=== PATIENT | female | born 1965 | race Two or more races ===

== ENCOUNTER 2020-11-10 15:31 | Emergency (ER) | payer OTHER ==
[~2020-11-10] VITALS: Ht 177.8 cm; Wt 131.6 kg
[2020-11-10] MEDS ORDERED: IPRATRPIUM/ALBUTEROL 0.5/2.5MG 3 ML NEBU. ONE (15:57)
[2020-11-10] MEDS ORDERED: IPRATRPIUM/ALBUTEROL 0.5/2.5MG 3 ML NEBU. NEB ONE (16:00)
[2020-11-10] MEDS ORDERED: BENZONATATE 100 MG CAPSULE. PO ONE (16:00)
--- NOTE | 2020-11-10 16:14 | EKG ---
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
--- NOTE | 2020-11-10 16:16 | PHYS DOC ---
Past History Past Medical History: Hypertension (SHAYE GARCIA APRN) Past Surgical History: Other Additional Past Surgical Histo: Shoulder (SHAYE GARCIA APRN) Alcohol Use: None (SHAYE GARCIA APRN) Adult General Chief Complaint Chief Complaint: SHORTNESS OF BREATH HPI HPI Patient is a 55-year-old female reports noticing shortness of breath approximately a month ago. Patient states it is slowly progressed and became worse stating that 4 to 5 days ago she become increasingly short of breath with exertion. Patient states that last night it has been at its worst, patient states that she has coughing spells with yellow-green productive sputum. Patient states she had a Covid test that was read negative on 11/08/2020. Patient denies chest pain, or chest palpitations, denies fever or chills at home, denies nausea, vomiting, diarrhea, abdominal pain, constipation. Patient denies any problems urinating, denies UTI type signs or symptoms, denies vaginal discharge, denies STI concerns. Patient denies any nasal congestion, denies ear pain, visual changes, denies loss of taste or smell. Patient states her main concern is that she becomes increasingly short of breath when she moves around, also states that it seems to resolve if she is resting still. Patient states she was a former cigarette smoker, she quit 5 years ago. Patient denies alcohol consumption, denies illicit drug use. Patient denies any other physical complaints or physical symptoms. (SHAYE GARCIA APRN) Review of Systems Review of Systems 14 body systems of review of systems have been reviewed. See HPI for pertinent positives and negative responses, otherwise all other systems are negative, nonpertinent or noncontributory. (SHAYE GARCIA APRN) Current Medications Current Medications Patient denies taking prescription medications at home. Current Medications Medications (Trade) Dose Ordered Sig/Xu Start Time Stop Time Status Last Admin Dose Admin Albuterol/ Ipratropium (Duoneb) 3 ml STK-MED ONCE 11/10/20 15:57 11/10/20 15:57 DC Benzonatate (Tessalon Perle) 100 mg 1X ONCE 11/10/20 16:00 11/10/20 16:01 DC (SHAYE GARCIA APRN) Allergies Allergies Allergies Coded Allergies Type Severity Reaction Last Updated Verified methylprednisolone Allergy Unknown 11/10/20 Yes (SHAYE GARCIA APRN) Physical Exam Physical Exam Constitutional: Well developed, well nourished, no acute distress, non-toxic appearance. Patient in no apparent respiratory distress during physical examination. HENT: Normocephalic, atraumatic, bilateral external ears normal, oropharynx moist, no oral exudates, nose normal. Oropharynx pink moist without uvular edema, no peritonsillar abscess, no cobblestoning, no tonsillar swelling, no tongue swelling, no loss of sensation to the tongue or face. Eyes: PERRLA, EOMI, conjunctiva normal, no discharge. Neck: Normal range of motion, no tenderness, supple, no stridor. No nuchal rigidity, no meningismus signs Cardiovascular:Heart rate regular rhythm, no murmur, heart sounds S1-S2 auscultation. Lungs & Thorax: Audible i.e. wheezing to auscultation all lung hoffman. No other adventitious lung sounds appreciated. Abdomen: Bowel sounds normal, soft, no tenderness, no masses, no pulsatile masses. Skin: Warm, dry, no erythema, no rash. Back: No tenderness, no CVA tenderness. Extremities: No tenderness, no cyanosis, no clubbing, ROM intact, no edema. Neurologic: Alert and oriented X 3, normal motor function, normal sensory function, no focal deficits noted. Psychologic: Affect normal, judgement normal, mood normal. (SHAYE GARCIA APRN) Current Patient Data Vital Signs Vital Signs Date Time Temp Pulse Resp B/P (MAP) Pulse Ox O2 Delivery O2 Flow Rate FiO2 11/10/20 15:45 98.0 97 18 163/97 (119) 96 Room Air (SHAYE GARCIA APRN) EKG EKG EKG performed at 1602 by house respiratory therapy staff, normal sinus rhythm without ectopy or heart rate 91 bpm, ID interval 0.144, QTc interval 0.467, no acute STEMI, no ACS, no acute ischemia appreciated, EKG interpreted by ED attending physician Dr. Gong. (SHAYE GARCIA APRN) Radiology/Procedures Radiology/Procedures PATIENT: AYDEN HOLM ACCOUNT: [id number] : 1965 LOCATION: ER AGE: 55 SEX: F EXAM STATUS: REG ER ORD. PHYSICIAN: SHAYE GARCIA APRN REASON: SHORT OF BREATH PROCEDURE: CHEST PA & LATERAL EXAM: Chest, 2 views. HISTORY: Short of breath. COMPARISON: None. FINDINGS: 2 views of the chest are obtained. There is no infiltrate, pleural effusion or pneumothorax. The heart is normal in size. There are chronic appearing interstitial markings. IMPRESSION: No acute pulmonary finding. Electronically signed by: Dionna Chamberlain MD (11/10/2020 5:00 PM) [facility] DICTATED AND SIGNED BY: DIONNA CHAMBERLAIN MD DATE: 11/10/201658 CC: SHAYE GARCIA APRN; CHINMAY DELEON ~MTH0 0 (SHAYE GARCIA APRN) Heart Score Risk Factors: Risk Factors: DM, Current or recent (<one month) smoker, HTN, HLP, family history of CAD, obesity. Risk Scores: Risk Factors: DM, Current or recent (<one month) smoker, HTN, HLP, family history of CAD, obesity. (SHAYE GARCIA APRN) Course & Med Decision Making Course & Med Decision Making Pertinent Labs and Imaging studies reviewed. (See chart for details) 55-year-old female, vital signs reviewed and are stable, presents to the emergency department for an evaluation of her cough and shortness of breath that have been progressively getting worse for the past month. ED plan: CBC, CMP, troponin, magnesium, EKG, chest x-ray PA and lateral, TANIA breathing treatment, Clinton Lechuga. Chemistry labs pending since 155, laboratory chemistry machines are not operable and are currently being repaired, patient is aware that labs are still pending Upon reexamination patient, patient had late expiratory wheezes bilateral upper lobes, a second albuterol nebulizer treatment was ordered. Afterwards the patient was road tested there, there is no drop in O2 saturation remained 97 to 98% during walk up and down hallways approximately 100 feet. Discussed findings with patient, will send home with prescription for albuterol MDI, Clinton [place], patient will follow up with primary care this week, gave verbal understanding of return to emergency department precautions or concerns, patient discharged home without incident. (SHAYE GARCIA APRN) Course & Med Decision Making Did not see or evaluate patient. 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 Note was signed before the beginning of my shift. (PANCHO KUMAR MD) Dragon Disclaimer Dragon Disclaimer This electronic medical record was generated, in whole or in part, using a voice recognition dictation system. (SHAYE GARCIA APRN) Departure Departure: Impression: Primary Impression: Acute bronchitis Disposition: 01 DC HOME SELF CARE/HOMELESS Condition: IMPROVED Referrals: CHINMAY DELEON (PCP) Patient Instructions: Acute Bronchitis Additional Instructions: Please use albuterol inhaler as directed, use your Tessalon Perle cough medicine as directed, given your excuse for the next few days, follow-up with your primary care doctor this week for reevaluation, return to the emergency department for worsening symptoms or other concerns. EMERGENCY DEPARTMENT GENERAL DISCHARGE INSTRUCTIONS Thank you for coming to [facility] (ED) today and trusting us with you care. We trust that you had a positivie experience in our Emergency Department. If you wish to speak to the department management, you may call the director at [phone]. YOUR FOLLOW UP INSTRUCTIONS ARE FOLLOWS: 1. Do you have a private Doctor? If you do not have a private doctor, please ask for a resource list of physicians or clinics that may be able to assist you with follow up care. 2. The Emergency Physician has interpreted your x-rays. The X-Ray specialist will also review them. If there is a change in the findings, you will be notified in 48 hours when at all possible. 3. A lab test or culture has been done, your results will be reviewed and you will be notified if you need a change in treatment. ADDITIONAL INSTRUCTIONS AND INFORMATION: 1. Your care today has been supervised by a physician who is specially trained in emergency care. Many problems require more than one evaluation for a complete diagnosis and treatment. We recommend that you schedule your follow up appointment as recommended to ensure complete treatment of you illness or injury. If you are unable to obtain follow up care and continue to have a problem, or if your condition worsens, we recommend that you return to the ED. 2. We are not able to safely determine your condition over the phone nor are we able to give sound medical advice over the phone. For these safety reasons, if you call for medical advice we will ask you to come to the ED for further evaluation. 3. If you have any questions regarding these discharge instructions please call the ED at [phone]. SAFETY INFORMATION: In the interest of safety, wellness, and injury prevention; we encourage you to wear your sealbelt, if you smoke; quite smoking, and we encourage family to use a protective helmet for bicycling and other sporting events that present an increased risk for head injury. IF YOUR SYMPTOMS WORSEN OR NEW SYMPTOMS DEVELOP, OR YOU HAVE CONCERNS ABOUT YOUR CONDITION; OR IF YOUR CONDITION WORSENS WHILE YOU ARE WAITING FOR YOUR FOLLOW UP APPOINTMENT; EITHER CONTACT YOUR PRIMARY CARE DOCTOR, THE PHYSICIAN WHOSE NAME AND NUMBER YOU WERE GIVEN, OR RETURN TO THE ED IMMEDIATELY. Scripts Benzonatate (TESSALON PERLE) 100 Mg Capsule 1 CAP PO TID for cough, #10 CAP 0 Refills Prov: SHAYE GARCIA APRN 11/10/20 Albuterol Sulfate (PROAIR HFA INHALER) 8.5 Gm Hfa.aer.ad 2 PUFF IH PRN Q4-6HRS PRN for wheezing for 21 Days, #1 INHALER 0 Refills Prov: SHAYE GARCIA APRN 11/10/20 Problem Qualifiers Primary Impression: Acute bronchitis Bronchitis organism: unspecified organism Qualified Codes: J20.9 - Acute b ronchitis, unspecified SHAYE GARCIA APRN Nov 10, 2020 16:16 PANCHO KUMAR MD Nov 10, 2020 22:28
[2020-11-10] MEDS ORDERED: DEXAMETHASONE SOD PHOS 10 MG/ML VIAL. ONE (16:21)
[2020-11-10] MEDS ORDERED: DEXAMETHASONE SOD PHOS 10 MG/ML VIAL. IM ONE (16:30)
--- NOTE | 2020-11-10 17:05 | RAD ---
EXAM: Chest, 2 views. HISTORY: Short of breath. COMPARISON: None. FINDINGS: 2 views of the chest are obtained. There is no infiltrate, pleural effusion or pneumothorax . The heart is normal in size. There are chronic appearing interstitial markings. IMPRESSION: No acute pulmonary finding. Electronically signed by: Dionna Ferrara MD (11/10/2020 5:00 PM) [facility]
[2020-11-10 17:36] LABS: BASO # 0.1 x10^3/uL (0.0-0.2); BASO % 1 % (0-3); EOS % 14 % (0-3); HEMATOCRIT 45.6 % (36.0-47.0); HEMOGLOBIN 14.9 g/dL (12.0-15.5); LYMPH # 2.1 x10^3/uL (1.0-4.8); LYMPH % 28 % (24-48); MEAN CORPUSCULAR HEMOGLOBIN 33 pg (25-35); MEAN CORPUSCULAR HGB CONC 33 g/dL (31-37); MEAN CORPUSCULAR VOLUME 100 fL (79-100); MONO # 0.5 x10^3/uL (0.0-1.1); MONO % 7 % (0-9); NEUT # 3.8 x10^3uL (1.8-7.7); NEUT % 50 % (31-73); PLATELET COUNT 288 x10^3/uL (140-400); RED BLOOD COUNT 4.55 x10^6/uL (3.50-5.40); RED CELL DISTRIBUTION WIDTH 13.3 % (11.5-14.5); WHITE BLOOD COUNT 7.6 x10^3/uL (4.0-11.0)
[2020-11-10] MEDS ORDERED: ALBUTEROL SULFATE 2.5 MG/3 ML NEBU. NEB ONE (18:30)
[2020-11-10 19:19] LABS: CREATININE 0.8 mg/dL (0.6-1.0); GFR 73.9; POTASSIUM 3.6 mmol/L (3.5-5.1)
[2020-11-10 19:24] LABS: ALBUMIN 3.7 g/dL (3.4-5.0); ALBUMIN/GLOBULIN RATIO 0.9 (1.0-1.7); MAGNESIUM 2.2 mg/dL (1.8-2.4); TOTAL BILIRUBIN 0.4 mg/dL (0.2-1.0)
[2020-11-10 19:52] VITALS: BP 138/81
[2020-11-10] MEDS ORDERED: ALBU2.5V8 IH (20:14)
[2020-11-10] MEDS ORDERED: BENZ100C PO (20:14)
== END 2020-11-10 20:26 | disposition home or self-care (01) ==
LOC: ER 15:31
DX: J20.9 Acute bronchitis, unspecified (principal); R06.02 Shortness of breath; R05 Cough; I10 Essential (primary) hypertension; Z98.890 Other specified postprocedural states; Z88.8 Allergy status to other drugs, medicaments and biological substances
CPT/HCPCS: 36415; 71046; 80053; 83735; 84484; 85025; 93005; 94640; 96372; 99285; J1100; J7613